=== PATIENT | female | born 1935 | race Caucasian/White ===

== ENCOUNTER 2021-09-10 16:54 | Emergency (ER) | payer MEDICARE ==
[2021-09-10] MEDS ORDERED: HYDROCODON-ACE1 EAC4 PO (20:08)
== END 2021-09-10 20:43 | disposition home or self-care (01) ==
LOC: ER1 16:54
DX: S52.572A Other intraarticular fracture of lower end of left radius, initial encounter for closed fracture (principal); I10 Essential (primary) hypertension; W19.XXXA Unspecified fall, initial encounter; Y92.009 Unspecified place in unspecified non-institutional (private) residence as the place of occurrence of the external cause
CPT/HCPCS: 29125; 73090; 73110; 99283